=== PATIENT | female | born 1980 | race Caucasian/White ===

== ENCOUNTER 2017-07-18 19:10 | Inpatient (IN) | payer MEDICAID ==
--- NOTE | 2017-07-18 21:38 | EDM.PDOC ---
ED HPI GENERAL MEDICAL PROBLEM - General Chief Complaint: Head Injury Stated Complaint: FELL HIT HEAD Time Seen by Provider: 07/18/17 19:42 Source of Information: Reports: Patient, Family History Limitations: Reports: Altered Mental Status - History of Present Illness INITIAL COMMENTS - FREE TEXT/NARRATIVE: This lady comes in because of a head injury. At about 4 or 4:30 PM today she was standing on the edge of a sofa working on some overhead lights. She fell off fell backwards and landed on a concrete floor discovered with some for tile. She hit the back of her head. There was no loss of consciousness. The patient however initially she seemed fine afterwards but later she has become confused. The patient does not remember anything that happened today. She cannot remember her own name and she does not know the name of her area she does recognize that he is her however she doesn't know where she is. She complains of headache mostly to the posterior part of the head and complains of upper neck pain Head Pain Score (Numeric/FACES): 10 - Related Data Allergies Allergy/AdvReac Type Severity Reaction Status Date / Time No Known Allergies Allergy Verified 07/18/17 19:23 Home Meds: Home Meds Sertraline HCl [Zoloft] 50 mg PO DAILY 12/01/13 [History] Past Medical History HEENT History: Reports: Impaired Vision Genitourinary History: Reports: Other (See Below) Other Genitourinary History: cysts on kidneys? 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: Reports: Polycystic Ovaries, , Other (See Below) Other OB/BYN History: polyp removed from right fillopiantube Psychiatric History: Reports: Addiction, Anxiety, Depression, Psychosis, Suicide Attempt - Infectious Disease History Infectious Disease History: Reports: Chicken Pox - Past Surgical History HEENT Surgical History: Reports: Tonsillectomy Female Surgical History: Reports: Section Social & Family History - Tobacco Use Smoking Status *Q: Never Smoker Second Hand Smoke Exposure: No - Caffeine Use Caffeine Use: Reports: Coffee, Tea - Alcohol Use Days Per Week of Alcohol Use: 0 - Recreational Drug Use Recreational Drug Use: Yes Drug Use in Last 12 Months: No Recreational Drug Type: Reports: Benzodiazepines ED ROS GENERAL - Review of Systems Review Of Systems: Unable To Obtain (Due to head injury) ED EXAM, HEAD INJURY - Physical Exam Exam: See Below Exam Limited By: Altered Mental Status General Appearance: Alert, WD/WN, Moderate Distress Head: Scalp Tenderness (Posterior scalp is tender no obvious hematoma or ecchymosis.) Nexus Criteria: Posterior, Midline Cervical Tenderness (She does have some midline or left paraspinous muscle tenderness to the upper neck on the left actually in the suboccipital area on the left.), Altered Level of Consciousness , Painful Distraction Injuries. No: Evidence of Intoxication Eyes: Bilateral Eye: EOMI, PERRL (The nurse felt that there was any difference in her pupillary response however I do not see this) Ears: Normal External Exam, Normal TMs Nose: Normal Inspection Throat/Mouth: Normal Inspection, Normal Oropharynx Neck: Paraspinous Muscle Tender (Tenderness as noted above), Other Respiratory: Lungs Clear Cardiovascular: Regular Rate, Rhythm, No Murmur GI/Abdominal Exam: Non-Tender Extremities: Normal Inspection Neurologic: No Motor/Sensory Deficits, Alert, Other (This lady is very disoriented. She does not know either her own name or the name of her . She does recognize that he is her . She knows she is at some kind of a medical facility but doesn't know where she doesn't even know what town she lives in. She doesn't know the date or any kind of current events. She is very distressed over this.). No: Oriented x 3 DTR: 2+: Bicep (R), Bicep (L), Patella (R), Patella (L) Skin: Normal Color, Warm/Dry - Usama Coma Score Best Eye Response (Usama): (4) Open Spontaneously Best Verbal Response (Usama): (5) Oriented Best Motor Response (Campbell): (6) Obeys Commands Usama Total: 15 Course - Vital Signs Last Recorded V/S: Last Vital Signs Temp 36.6 C 07/18/17 19:26 Pulse 60 07/18/17 21:11 Resp 16 07/18/17 21:11 BP 125/72 07/18/17 21:11 Pulse Ox 98 07/18/17 21:11 - Orders/Labs/Meds Orders: Active Orders 24 hr Category Date Time Status Cervical Spine wo Cont [CT] Stat Exams 07/18/17 19:43 Taken Head wo Cont [CT] Stat Exams 07/18/17 19:42 Taken - Radiology Interpretation Free Text/Narrative:: CT shows no acute abnormality of the head are neck. - Re-Assessments/Exams Free Text/Narrative Re-Assessment/Exam: 07/18/17 21:38 Patient was rechecked after the CT and she continues to be disoriented. I spoke briefly with Dr. Norman in the emergency department at [facility] and he just recommended observation overnight. I spoke with Dr. Ingram and he agrees to accept the patient. She'll be admitted to the floor for neuro checks. Departure - Departure Time of Disposition: 21:41 Disposition: Admitted As Inpatient 68 Clinical Impression: Concussion injury of brain - Discharge Information Referrals: PCP,None [Primary Care Provider] - - My Orders Last 24 Hours: My Active Orders 07/18/17 19:42 Head wo Cont [CT] Stat 07/18/17 19:43 Cervical Spine wo Cont [CT] Stat - Assessment/Plan Last 24 Hours: My Active Orders 07/18/17 19:42 Head wo Cont [CT] Stat 07/18/17 19:43 Cervical Spine wo Cont [CT] Stat
[2017-07-18] MEDS ORDERED: Ibuprofen 600 MG Tab PO PRN (22:40)
[2017-07-18] MEDS: Acetaminophen 325 MG Tab PO PRN (23:04)
[2017-07-18] MEDS ORDERED: Ondansetron 4 MG/2 ML SDV IVPUSH PRN (23:40)
[2017-07-18] MEDS ORDERED: diphenhydrAMINE 50 MG/ML SDV IVPUSH PRN (23:42)
[2017-07-18] MEDS ORDERED: Promethazine 12.5 MG in Sodium Chloride 0.9% 50 ML IV PRN (23:42)
[2017-07-18] MEDS ORDERED: Morphine 2 MG/ML Syringe IVPUSH PRN (23:45)
[2017-07-18] MEDS ORDERED: Sodium Chloride 0.9% 1,000 ML IV SCH (23:45)
[2017-07-18] MEDS ORDERED: fentaNYL 100 MCG/2 ML SDV IVPUSH PRN (23:46)
[2017-07-19] MEDS ORDERED: Scopolamine 1.5 MG Transdermal Patch TRDERM PRN
[2017-07-19] MEDS: Acetaminophen 325 MG Tab PO PRN (03:09)
[2017-07-19 08:05] VITALS: BP 108/58
--- NOTE | 2017-07-19 22:12 | CONS ---
DATE OF SERVICE: 07/18/2017 REFERRING PHYSICIAN: CONSULTING PHYSICIAN: Willie Ingram MD REASON FOR CONSULTATION: Evaluation of neurological status. HISTORY OF PRESENT ILLNESS: This is a pleasant 37-year-old female, who was seen by the emergency room staff. On 07/18/2017 at approximately 4:00 p.m., the patient was standing, working on some lights and fell, landed on a concrete floor. The patient did not have a loss of consciousness at this time. She did initially do well, but then became confused later. She presented to the emergency room with complaints of headache and the aforementioned problems. She has pain on her head which is 1 to 2 out of 10. PAST MEDICAL HISTORY: Anxiety, depression, polycystic ovarian syndrome, history of C- section, tonsillectomy, radiofrequency ablation of her greater saphenous veins. SOCIAL HISTORY: She presents with her today. FAMILY HISTORY: Noncontributory. REVIEW OF SYSTEMS: GENERAL: As above. HEENT: Headache as above. CARDIOVASCULAR: No chest pain. RESPIRATORY: No shortness of breath. GI: No changes. : No changes. NEURO: As above. PSYCH: No changes. The remainder review of systems was reviewed and is negative. PHYSICAL EXAMINATION: VITAL SIGNS: Temperature 97.9, blood pressure 123/72, pulse 76, respirations 16, 100% on room air. HEENT: Pupils are equal. NECK: Has small amount of pain with palpation. NEUROLOGICAL: She is oriented. PSYCH: No gross depression. CARDIOVASCULAR: Regular rhythm and rate. RESPIRATORY: Lungs clear to consultation bilaterally. ABDOMEN: Bowel sounds positive. EXTREMITIES: Full range of motion. NEUROLOGICAL: Cranial nerves 2 through 12 are also grossly intact. LABORATORY DATA: Show a hemoglobin of 11.8, essentially normal basic metabolic panel and CBC. IMAGING DATA: The patient underwent a CT scan of her head, which showed no intracranial bleeds. She also underwent a cervical C-spine, which was reported to me as no abnormalities. ASSESSMENT: Traumatic fall. PLAN: The patient will be admitted for observation at this time. This was also discussed via the emergency room, Dr. Pang, with the neurosurgeon. We will keep her n.p.o. at this time, reassess her in the morning. She also have neuro checks on hourly basis. The patient understands this plan and wishes to proceed. Willie Ingram MD /[id number]
--- NOTE | 2017-07-22 09:10 | DISCH ---
FINAL NOTE/DISCHARGE NOTE SUBJECTIVE: The patient has greatly improved overnight per her and her family. OBJECTIVE: VITAL SIGNS: Stable. CARDIOVASCULAR: Regular rhythm and rate. RESPIRATORY: Lungs are clear to consultation bilaterally. NEUROLOGICAL: Oriented x3. PSYCHIATRIC: No abnormalities. ASSESSMENT: Status post head injury. PLAN: 1. The patient will be discharged today. 2. Follow up with myself in [place] next week. 3. General disposition: The patient was instructed not to have any strenuous activities. The and her were both explained that any evidence of neurological change, they are to present to the local emergency room immediately. We specifically also discussed a subarachnoid hemorrhage, subdural hematomas, epidural hematomas, the signs and symptoms of these delayed bleeding issues and any evidence of somnolence was also required to present to the emergency room. Furthermore, I discussed any concerns or any minor or even possibly insignificant neurological or behavioral changes, the patient's family is to call 911 or present to the emergency room. They understand this plan and wished to proceed with discharge. DISCHARGE MEDICATIONS: None. ADDITIONAL DIAGNOSIS OR CONSULTATIONS DURING THIS HOSPITALIZATION: None.
== END 2017-07-19 09:42 | disposition home or self-care (01) | DRG 90 ==
LOC: JP.ED 19:10 → JP.MS 22:11
PROVIDERS: ADMIT Surgery; ATTEND Surgery
DX: S06.0X0A Concussion without loss of consciousness, initial encounter (principal); Y93.89 Activity, other specified; W08.XXXA Fall from other furniture, initial encounter; R40.2412 Glasgow coma scale score 13-15, at arrival to emergency department; E28.2 Polycystic ovarian syndrome; F32.9 Major depressive disorder, single episode, unspecified; F41.9 Anxiety disorder, unspecified; H54.7 Unspecified visual loss; R41.0 Disorientation, unspecified; R51 Headache; M54.2 Cervicalgia
CPT/HCPCS: 36415; 70450; 72125; 80048; 85027; 99285-25; A9270-GY; J7040

== ENCOUNTER 2018-07-11 10:16 | Emergency (ER) | payer MEDICAID ==
[2018-07-11 10:35] VITALS: BP 125/96
--- NOTE | 2018-07-11 11:26 | EDM.PDOC ---
ED HPI GENERAL MEDICAL PROBLEM - General Chief Complaint: FINGER WAVER Problem Stated Complaint: EXCESSIVE MENSTRUAL BLEEDING Time Seen by Provider: 07/11/18 11:02 Source of Information: Reports: Patient, RN Notes Reviewed History Limitations: Reports: No Limitations - History of Present Illness INITIAL COMMENTS - FREE TEXT/NARRATIVE: Elizabet presents today with complaints of sudden onset menstrual bleeding today. She reports soaking a tampon in 15 minutes with significant cramping and clots the size of a golf ball. She reports heavy bleeding with her menstrual cycle on 06/17/18 and 06/18/18 with soaking a regular sized tampon every 30 minutes for one of the days with heavy cramping. She denies trauma, injury to her genitals/pelvis. She denies pain during intercourse or post-coital bleeding. She does not use any form of contraception. She is without concerns for STI's. Lower Pelvic Pain Score (Numeric/FACES): 7 - Related Data Allergies Allergy/AdvReac Type Severity Reaction Status Date / Time No Known Allergies Allergy Verified 07/18/17 19:23 Home Meds: Home Meds Sertraline HCl [Zoloft] 50 mg PO DAILY 12/01/13 [History] Past Medical History HEENT History: Reports: Impaired Vision Genitourinary History: Reports: Other (See Below) Other Genitourinary History: cysts on kidneys? FINGER WAVER History: Reports: Polycystic Ovaries, , Other (See Below) Other FINGER WAVER History: polyp removed from right fillopiantube Psychiatric History: Reports: Addiction, Anxiety, Depression, Psychosis, Suicide Attempt - Infectious Disease History Infectious Disease History: Reports: Chicken Pox - Past Surgical History HEENT Surgical History: Reports: Tonsillectomy Female Surgical History: Reports: Section Social & Family History - Tobacco Use Smoking Status *Q: Never Smoker - Caffeine Use Caffeine Use: Reports: Coffee - Recreational Drug Use Recreational Drug Use: No ED ROS GENERAL - Review of Systems Review Of Systems: See Below Constitutional: Denies: Fever, Chills, Malaise, Weakness HEENT: Reports: No Symptoms Respiratory: Reports: No Symptoms Cardiovascular: Reports: No Symptoms Endocrine: Reports: No Symptoms GI/Abdominal: Reports: Abdominal Pain, Other (menstrual cramping with radiation to her low back. ). Denies: Constipation, Diarrhea, Nausea, Vomiting : Reports: Irregular Menses, Pain, Other (painful, irregular and heavy menstrual cycle. ). Denies: Flank Pain Musculoskeletal: Reports: No Symptoms Skin: Reports: No Symptoms Neurological: Reports: No Symptoms Psychiatric: Reports: No Symptoms Hematologic/Lymphatic: Reports: No Symptoms Immunologic: Reports: No Symptoms ED EXAM, GI/ABD - Physical Exam Exam: See Below Text/Narrative:: Elizabet is an alert and oriented 38 year old female presenting with complaints of heavy, painfu vaginal bleeding with clots the size of a golf ball. She reports soaking a tampon in 15 minutes this morning. She denies bleeding at this time. She has not taken any OTC medications for cramping. Patient states she can only use regular sized tampons, larger onces hurt when used. Exam Limited By: No Limitations General Appearance: Alert, WD/WN, Mild Distress Eyes: Bilateral: Normal Appearance, EOMI Ears: Normal External Exam, Normal Canal, Hearing Grossly Normal, Normal TMs Throat/Mouth: Normal Inspection, Normal Lips, Normal Teeth, Normal Gums, Normal Oropharynx, Normal Voice, No Airway Compromise Head: Atraumatic, Normocephalic Neck: Normal Inspection, Supple, Non-Tender, Full Range of Motion. No: Lymphadenopathy (R), Lymphadenopathy (L) Respiratory/Chest: No Respiratory Distress, Lungs Clear, Normal Breath Sounds, No Accessory Muscle Use, Chest Non-Tender Cardiovascular: Normal Peripheral Pulses, Regular Rate, Rhythm, No Edema, No Murmur, No Rub GI/Abdominal Exam: Normal Bowel Sounds, Soft, No Organomegaly, No Distention, No Mass, Other (Tenderness to RLQ, LLQ with palpation, no rebound or guarding) Back Exam: Normal Inspection, Full Range of Motion. No: CVA Tenderness (R), CVA Tenderness (L) Extremities: Normal Inspection, Normal Range of Motion, Non-Tender, No Pedal Edema, Normal Capillary Refill Neurological: Alert, Oriented, CN II-XII Intact, Normal Cognition, Normal Gait, Normal Reflexes, No Motor/Sensory Deficits Psychiatric: Normal Affect, Normal Mood Skin Exam: Warm, Dry, Intact, Normal Color, No Rash Lymphatic: No Adenopathy Course - Vital Signs Last Recorded V/S: Last Vital Signs Temp 37.0 C 07/11/18 10:34 Pulse 51 L 07/11/18 10:34 Resp 16 07/11/18 10:34 BP 125/96 H 07/11/18 10:34 Pulse Ox 100 07/11/18 10:34 - Orders/Labs/Meds Labs: Laboratory Tests 07/11/18 07/11/18 07/11/18 Range/Units 11:37 11:37 11:37 WBC 6.9 (4.5-11.0) K/uL RBC 4.58 (3.30-5.50) M/uL Hgb 12.8 (12.0-15.0) g/dL Hct 39.9 (36.0-48.0) % MCV 87 (80-98) fL MCH 28 (27-31) pg MCHC 32 (32-36) % Plt Count 298 (150-400) K/uL Neut % (Auto) 62 (36-66) % Lymph % (Auto) 30 (24-44) % Bee % (Auto) 6 (2-6) % Eos % (Auto) 2 (2-4) % Baso % (Auto) 0 (0-1) % PT 10.8 (9.5-12.0) sec INR 0.98 (0.80-1.20) APTT 29.7 (27.0-36.0) sec Sodium 139 L (140-148) mmol/L Potassium 4.2 (3.6-5.2) mmol/L Chloride 103 (100-108) mmol/L Carbon Dioxide 26 (21-32) mmol/L Anion Gap 14.2 H (5.0-14.0) mmol/L BUN 10 (7-18) mg/dL Creatinine 0.7 (0.6-1.0) mg/dL Est Cr Clr Drug Dosing 95.94 mL/min Estimated GFR (MDRD) > 60 (>60) Glucose 77 (74-106) mg/dL Calcium 9.0 (8.5-10.1) mg/dL Total Bilirubin 0.3 (0.2-1.0) mg/dL AST 20 (15-37) U/L ALT 23 (12-78) U/L Alkaline Phosphatase 104 (46-116) U/L Total Protein 7.9 (6.4-8.2) g/dL Albumin 3.8 (3.4-5.0) g/dL Globulin 4.1 H (2.3-3.5) g/dL Albumin/Globulin Ratio 0.9 L (1.2-2.2) TSH, Ultra Sensitive 2.330 (0.358-3.740) uIU/mL Urine Color Urine Appearance Urine pH (4.5-8.0) Ur Specific [place] (1.008-1.030) Urine Protein (NEGATIVE) mg/dL Urine Glucose (UA) (NEGATIVE) mg/dL Urine Ketones (NEGATIVE) mg/dL Urine Occult Blood (NEGATIVE) Urine Nitrite (NEGATIVE) Urine Bilirubin (NEGATIVE) Urine Urobilinogen (NORMAL) mg/dL Ur Leukocyte Esterase (NEGATIVE) Urine RBC (0-5) Urine WBC (0-5) Ur Epithelial Cells Amorphous Sediment Urine Bacteria Urine Mucus Urine HCG, Qual 07/11/18 07/11/18 Range/Units 14:00 14:00 WBC (4.5-11.0) K/uL RBC (3.30-5.50) M/uL Hgb (12.0-15.0) g/dL Hct (36.0-48.0) % MCV (80-98) fL MCH (27-31) pg MCHC (32-36) % Plt Count (150-400) K/uL Neut % (Auto) (36-66) % Lymph % (Auto) (24-44) % Bee % (Auto) (2-6) % Eos % (Auto) (2-4) % Baso % (Auto) (0-1) % PT (9.5-12.0) sec INR (0.80-1.20) APTT (27.0-36.0) sec Sodium (140-148) mmol/L Potassium (3.6-5.2) mmol/L Chloride (100-108) mmol/L Carbon Dioxide (21-32) mmol/L Anion Gap (5.0-14.0) mmol/L BUN (7-18) mg/dL Creatinine (0.6-1.0) mg/dL Est Cr Clr Drug Dosing mL/min Estimated GFR (MDRD) (>60) Glucose (74-106) mg/dL Calcium (8.5-10.1) mg/dL Total Bilirubin (0.2-1.0) mg/dL AST (15-37) U/L ALT (12-78) U/L Alkaline Phosphatase (46-116) U/L Total Protein (6.4-8.2) g/dL Albumin (3.4-5.0) g/dL Globulin (2.3-3.5) g/dL Albumin/Globulin Ratio (1.2-2.2) TSH, Ultra Sensitive (0.358-3.740) uIU/mL Urine Color Yellow Urine Appearance Clear Urine pH 5.0 (4.5-8.0) Ur Specific [place] 1.015 (1.008-1.030) Urine Protein Negative (NEGATIVE) mg/dL Urine Glucose (UA) Normal (NEGATIVE) mg/dL Urine Ketones Negative (NEGATIVE) mg/dL Urine Occult Blood Trace (NEGATIVE) Urine Nitrite Negative (NEGATIVE) Urine Bilirubin Negative (NEGATIVE) Urine Urobilinogen Normal (NORMAL) mg/dL Ur Leukocyte Esterase Negative (NEGATIVE) Urine RBC 0-5 (0-5) Urine WBC Not seen (0-5) Ur Epithelial Cells Many Amorphous Sediment Rare Urine Bacteria Not seen Urine Mucus Not seen Urine HCG, Qual Negative Patient lab work reviewed with her, all her questions answered. We will complete a pelvic US. Meds: Medications Discontinued Medications Generic Name Dose Route Start Last Admin Trade Name Freq PRN Reason Stop Dose Admin Acetaminophen 1,000 mg 07/11/18 11:34 07/11/18 12:04 Tylenol Extra Strength PO 07/11/18 11:35 1,000 mg ONETIME ONE Administration Ketorolac Tromethamine 60 mg 07/11/18 14:02 07/11/18 14:06 Toradol IM 07/11/18 14:03 60 mg ONETIME ONE Administration - Radiology Interpretation Free Text/Narrative:: US Pelvis non-OB Impression: Heterogeneous thickened endometrium which may represent some clot in the endometrial cavity endometrium is slightly hyperemic. Adjacent to the left ovary is soft tissue focus measuring 3.6x2.2x2.1cm containing a site hyperechoic and a small anechoic focus. Urine Hgc negative - Re-Assessments/Exams Free Text/Narrative Re-Assessment/Exam: 07/11/18 14:50 US and lab work discussed with patient. All her questions were answered. She is in agreement with plan. She can use ibuprofen/acetaminophen as needed for pain. Follow up with primary provider for CONTAINER REPAIRER referral. Departure - Departure Time of Disposition: 15:05 Disposition: Home, Self-Care 01 Condition: Good Clinical Impression: Abnormal vaginal bleeding - Discharge Information *PRESCRIPTION DRUG MONITORING PROGRAM REVIEWED*: No *COPY OF PRESCRIPTION DRUG MONITORING REPORT IN PATIENT JANNETH: No Referrals: PCP,None [Primary Care Provider] - Forms: ED Department Discharge Additional Instructions: You have been evaluated and treated for abnormal uterine bleeding. US results discussed. Urine test negative. Your lab work did not show any acute findings and was within normal ranges with Hgb of 12.8, TSH 2.33, kidney, liver functions all normal. Use of ibuprofen 800mg by mouth three times a day with your uterine bleeding can help with cramping and pain. You can also use acetaminophen 1000mg by mouth three times a day for pain. Track your uterine bleeding and size of blood clots and report to your primary. Keep yourself hydrated. Follow up with your primary provider for a CONTAINER REPAIRER referral in 7 to 10 days. Return for worsening, issues or concerns. - Assessment/Plan Assessment:: Abnormal vaginal bleeding Plan: Patient evaluated and treated for abnormal uterine bleeding. US results discussed. Urine test negative. Lab work did not show any acute findings and was within normal ranges with Hgb of 12.8, TSH 2.33, kidney, liver functions all normal. Use of ibuprofen 800mg by mouth three times a day with uterine bleeding, cramping and pain. Can also use acetaminophen 1000mg by mouth three times a day for pain. Track uterine bleeding and size of blood clots and report to primary. Keep hydrated. Follow up with primary provider for a CONTAINER REPAIRER referral in 7 to 10 days. Return for worsening, issues or concerns.
[2018-07-11] MEDS ORDERED: Acetaminophen 500 MG Tab PO ONE (11:34)
[2018-07-11] MEDS ORDERED: Ketorolac 60 MG/2 ML SDV IM ONE (14:02)
--- NOTE | 2018-07-11 14:45 | US ---
Pelvis Non OB Comp CLINICAL HISTORY: Vaginal bleeding FINDINGS: Uterus measures 7.4 x 3.5 x 3.9 cm. Endometrium is thickened at just over 8 mm. It is heter ogeneous. This may represent some clot in the endometrial cavity. The endometrium is mildly hypervasc ular. The left ovary measures 2.8 x 2.0 x 2.7 cm. There is a cyst measuring 2.1 x 1.3 x 1.5 cm adjacent to the left ovary is soft tissue density measuring 3.6 x 2.2 x 2.1 cm. There is a slightly hyperechoic f ocus within this measuring 1.3 x 1.1 x 1.0 cm. There is also 1.3 x 1.1 x 1.0 cm anechoic focus. This could feasibly represent the a displaced right ovary. Pelvic complex mass is not excluded. There is a small amount of free fluid in the cul-de-sac IMPRESSION: Heterogeneous thickened endometrium which may represent to some clot in the endometrial c avity. The endometrium is slightly hyperemic. This is nonspecific Adjacent to the left ovary is soft tissue focus measuring 3.6 x 2.2 x 2.1 cm containing a site hypere choic and a small anechoic focus. This could be a displaced to the right ovary. A left the pelvic mas s is not excluded. Findings should be correlated with hCG levels and that an ectopic is not excluded
--- NOTE | 2018-07-11 14:56 | US ---
See ultrasound report
== END 2018-07-11 15:23 | disposition home or self-care (01) ==
LOC: JP.ED 10:16
DX: N93.9 Abnormal uterine and vaginal bleeding, unspecified (principal); F41.9 Anxiety disorder, unspecified; F32.9 Major depressive disorder, single episode, unspecified; Z79.899 Other long term (current) drug therapy
CPT/HCPCS: 36415; 76830; 76856; 80053; 81001; 81025; 84443; 85025; 85610; 85730; 96372; 99284; A9270; J1885

== ENCOUNTER 2018-12-22 11:34 | Emergency (ER) | payer MEDICAID ==
[2018-12-22 11:58] VITALS: BP 108/45
[2018-12-22] MEDS ORDERED: Ketorolac 60 MG/2 ML SDV IM ONE (12:54)
--- NOTE | 2018-12-22 12:54 | EDM.PDOC ---
<Catherine Gilliam - Last Filed: 12/23/18 00:46> ED HPI GENERAL MEDICAL PROBLEM - General Chief Complaint: Genitourinary Problem Stated Complaint: CRAMPS, DIARRHEA, VOMITING, RT FLANK PAIN Time Seen by Provider: 12/22/18 12:20 Source of Information: Reports: Patient History Limitations: Reports: No Limitations - History of Present Illness INITIAL COMMENTS - FREE TEXT/NARRATIVE: Pt presents with lower right abdominal pain. She states that this started around 6 pm last evening with severe abdominal cramping that ended up with a very large hard, dark bowel movement that progressed to diarrhea. Pt states she had a hysterectomy in August that also showed significant endometriosis. They were unable to remove her ovaries & one flaopian tube remains due to the endometriosis. She continues with stomach ache now more to the right lower quadrant that is better with pressure applied. Pt states she is otherwise healthy, drinks adequate water with 3-4 large bottles daily, only medication is zoloft and prn laxative when difficulty passing stool. Pt does not want narcotics and states was able to make it through her hysterectomy surgery with only tylenol, ibuprofen and toradol for pain. Onset: Sudden Onset Date: 12/21/18 Onset Time: 18:00 Duration: Hour(s):, Constant, Getting Worse Location: Reports: Abdomen (predominently lower right quadrant) Quality: Reports: Sharp Severity: Severe Improves with: Reports: Immobilization Worsens with: Reports: Movement Context: Reports: Other (sudden onset) Associated Symptoms: Reports: Loss of Appetite, Nausea/Vomiting, Other ( constipation progressing to diarrhea) Pelvic Pain Score (Numeric/FACES): 7 - Related Data Allergies Allergy/AdvReac Type Severity Reaction Status Date / Time No Known Allergies Allergy Verified 12/22/18 12:12 Home Meds: Home Meds Sertraline HCl [Zoloft] 50 mg PO DAILY 12/01/13 [History] Past Medical History HEENT History: Reports: Impaired Vision Genitourinary History: Reports: Other (See Below) Other Genitourinary History: cysts on kidneys? 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 History: Reports: Polycystic Ovaries, , Other (See Below) Other 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 History: polyp removed from right fillopiantube Psychiatric History: Reports: Addiction, Anxiety, Depression, Psychosis, Suicide Attempt - Infectious Disease History Infectious Disease History: Reports: Chicken Pox - Past Surgical History HEENT Surgical History: Reports: Tonsillectomy Female Surgical History: Reports: Section, Hysterectomy Social & Family History - Tobacco Use Smoking Status *Q: Never Smoker - Caffeine Use Caffeine Use: Reports: Coffee - Recreational Drug Use Recreational Drug Use: No ED ROS GENERAL - Review of Systems Review Of Systems: See Below Constitutional: Reports: Decreased Appetite HEENT: Reports: No Symptoms Respiratory: Reports: No Symptoms Cardiovascular: Reports: No Symptoms GI/Abdominal: Reports: Abdominal Pain, Constipation, Diarrhea, Decreased Appetite, Mucous in Stool, Nausea, Vomiting Musculoskeletal: Reports: No Symptoms Skin: Reports: No Symptoms Neurological: Reports: No Symptoms Psychiatric: Reports: Depression (without exacerbation controlled with current dose of zoloft) Hematologic/Lymphatic: Reports: No Symptoms ED EXAM, GENERAL - Physical Exam Exam: See Below Free Text/Narrative:: 38 y/o female appears her stated age with moderate distress. Pt is not diaphoretic and is without fever Exam Limited By: No Limitations General Appearance: Alert, WD/WN, Moderate Distress. No: No Apparent Distress Respiratory/Chest: No Respiratory Distress, Lungs Clear, Normal Breath Sounds, No Accessory Muscle Use, Chest Non-Tender Cardiovascular: Normal Peripheral Pulses, Regular Rate, Rhythm, No Edema, No Gallop, No Murmur, No Rub GI/Abdominal: Soft, No Organomegaly, No Distention, No Abnormal Bruit, No Mass, Pelvis Stable, Guarding, Rebound, Tender, Abnormal Bowel Sounds (hypo) Neurological: Alert, Oriented, CN II-XII Intact, Normal Cognition, Normal Reflexes, No Motor/Sensory Deficits Skin Exam: Warm, Dry, Intact, Normal Color, No Rash Lymphatic: No Adenopathy Course - Vital Signs Last Recorded V/S: Last Vital Signs Temp 97.3 F 12/22/18 12:12 Pulse 61 12/22/18 12:12 Resp 22 H 12/22/18 12:12 BP 108/45 L 12/22/18 12:12 Pulse Ox 100 12/22/18 12:12 - Orders/Labs/Meds Orders: Active Orders 24 hr Category Date Time Status Transvaginal Non OB [US] Stat Exams 12/22/18 16:54 Taken Labs: Laboratory Tests 12/22/18 12/22/18 Range/Units 12:53 12:53 WBC 16.3 H (4.5-11.0) K/uL RBC 4.45 (3.30-5.50) M/uL Hgb 12.3 (12.0-15.0) g/dL Hct 38.0 (36.0-48.0) % MCV 85 (80-98) fL MCH 28 (27-31) pg MCHC 32 (32-36) % Plt Count 275 (150-400) K/uL Sodium 136 L (140-148) mmol/L Potassium 4.0 (3.6-5.2) mmol/L Chloride 103 (100-108) mmol/L Carbon Dioxide 25 (21-32) mmol/L Anion Gap 12.0 (5.0-14.0) mmol/L BUN 10 (7-18) mg/dL Creatinine 0.7 (0.6-1.0) mg/dL Est Cr Clr Drug Dosing 95.94 mL/min Estimated GFR (MDRD) > 60 (>60) Glucose 93 (74-106) mg/dL Calcium 9.2 (8.5-10.1) mg/dL Meds: Medications Discontinued Medications Generic Name Dose Route Start Last Admin Trade Name Freq PRN Reason Stop Dose Admin Ketorolac Tromethamine 60 mg 12/22/18 12:54 12/22/18 13:08 Toradol IM 12/22/18 12:55 60 mg ONETIME ONE Administration Ketorolac Tromethamine 10 mg 12/22/18 17:47 12/22/18 17:53 Toradol PO 12/22/18 17:48 10 mg ONETIME ONE Administration - Re-Assessments/Exams Free Text/Narrative Re-Assessment/Exam: 12/22/18 16:[address] scan were discussed with the patient. Radiologist suggested additional Ultrasound imaging of the pelvis. This was consented to by the patient and was completed. Additional findings from the ultrasound discussed with the patient and options were discussed. Contacted her 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 group in [place] who were very familiar with her case and suggested consult with [facility] due to her risk and inability to complete a surgery in [place]. Patient offered referral to [facility] or optional steroid therapy for temporary relief of symptoms until she can arrange for surgical procedure. Departure - Departure Time of Disposition: 18:11 Disposition: Home, Self-Care 01 Condition: Fair Clinical Impression: Endometriosis - Discharge Information Instructions: Endometriosis Referrals: PCP,None [Primary Care Provider] - Forms: ED Department Discharge Additional Instructions: Activity as tolerated Care Plan Goals: Followup with Dr. Castañeda on Wed at 1045 at the [facility]. Take the torodol every 6 hours for pain/inflammation If symptoms worsen or are not able to control the pain return to the ER in [place] or go to the ER at the [facility] location. Dr. Castañeda is expecting you and will see you at the above time or in the ER if necessary. - My Orders Last 24 Hours: My Active Orders 12/22/18 16:54 Transvaginal Non OB [US] Stat - Assessment/Plan Last 24 Hours: My Active Orders 12/22/18 16:54 Transvaginal Non OB [US] Stat <Armin Saunders - Last Filed: 12/23/18 07:00> Attestation - Student - Attestation Statement Attestation Statement: I personally performed or re-performed the physical examination and medical decision making. I have verified all student documentation or findings, including history, physical exam and/or medical decision making. Armin Saunders MD
--- NOTE | 2018-12-22 14:29 | CT ---
Abdomen Pelvis wo Cont CLINICAL HISTORY: Abdominal pain, previous hysterectomy COMPARISON: None TECHNIQUE: Multiple contiguous axial sections were obtained from the level of the lung bases down through the pelvis without and with the IV infusion of iodinated contrast. Oral contrast was not administered. From these images 3D reconstructions were obtained and viewed on a dedicated and independent workstation. Auto dosage reduction and iterative reconstruction techniques employed. FINDINGS: There is a noncalcified 2 x 3 mm subpleural nodule in the right lower lobe posterior laterally on image #9. The liver is free of obvious mass or biliary dilatation. Evaluation is limited without IV contrast. The gallbladder has a normal appearance. The spleen has normal size and shape. The pancreas shows no mass or inflammatory change. The adrenal glands appear normal bilaterally.. The kidneys are free of stones or hydronephrosis. The ureters have a normal course and contour. The bladder has a normal contour. There is some thickening of the proximal third of the sigmoid colon. There is an ovoid soft tissue mass in the left the mid pelvis measuring 5.8 x 5.1 x 6.1 cm. There is some stranding in the pelvic fat posterior to this. There is some wispy increased density within the lower abdominal and pelvic mesenteric fat. There are scattered small mildly prominent mesenteric lymph nodes. The patient is status post hysterectomy. There are a few scattered small lymph nodes in the periaortic the upper. Iliac regions. These are all subcentimeter in size. Inguinal regions are clear. IMPRESSION: 525.1 x 6.1 cm slightly heterogeneous mass in the mid left pelvis. This is contiguous to the proximal third of the sigmoid which appears slightly thickened. There is some inflammatory change in the fat posteriorly. Patient has a history of prior surgery in August 2018. Patient also has a history of the endometriosis. This mass could be a residual hematoma or possibly infected hematoma in that there is some inflammatory change. Abscess is less likely due to the chronology of the procedure. Considering the patient's history of endometriosis this could also represent a large endometrioma. Ultrasound is recommended for additional characterization. There is some generalized increase in mesenteric fat density with scattered mesenteric lymph nodes. This can be seen with mesenteric panniculitis. 2 x 3 mm noncalcified subpleural nodule in the right lower lobe. Follow-up using Fleischner Society criteria recommended FLEISCHNER CRITERIA (2017) Incidental Pulmonary Nodule Follow-up SOLID NODULES: Nodule size <6 mm -single and multiple nodules in low risk patient: no routine follow-up -single and multiple nodules in high risk patient: optional CT at 12 months Nodule size 6-8 mm -single nodule in low risk patient: CT at 6-12 months, then consider CT at 18-24 months -multiple nodules in low risk patient: CT at 3-6 months, then consider CT at 18-24 months -single nodule in high risk patient: CT at 6-12 months, then CT at 18-24 months -multiple nodules in high risk patient: CT at 3-6 months, then CT at 18-24 months Nodule size >8 mm -single nodule in both low and high risk patient: consider CT, PET/CT, or tissue sampling at 3 months -multiple nodules in low risk patient: CT at 3-6 months, then consider CT at 18-24 months -multiple nodules in high risk patient: CT at 3-6 months, then CT at 18-24 months SUB-SOLID NODULES: Nodule size <6 mm -single ground-glass, part solid: no routine follow-up -multiple: CT at 3-6 months. If stable, consider CT at 2 and 4 years Nodule size ?6 mm -single ground-glass: CT at 6-12 months to confirm persistence, then CT every 2 years until 5 years -single part solid: CT at 3-6 months to confirm persistence. If unchanged and solid component remains <6 mm, annual CT should be performed for 5 years -multiple: CT at 3-6 months. Subsequent management based on the most suspicious nodule(s) Implications for Patient Care 1. These guidelines apply to incidental nodules, which can be managed according to the specific recommendations. 2. These guidelines do not apply to patients younger than 35 years, immunocompromised patients, or patients with cancer. 3. For lung cancer screening, adherence to the existing [employer] Lung CT Screening Reporting and Data System (Lung-RADS) guidelines is recommended.
--- NOTE | 2018-12-22 16:55 | US ---
Pelvis Non OB Comp CLINICAL HISTORY: Pelvic pain, mass, previous surgery FINDINGS: Real-time transabdominal and transvaginal images are obtained through the pelvis and correlated with a recent CT. The soft tissue masslike density in the pelvis on CT correlates to a complex focus of similar size. There are loculated fluid components which are fairly well demarcated. There is some surrounding free fluid. There is flow within the solid appearing components. IMPRESSION: Complex masslike focus in the pelvis appears to contain predominantly ovarian tissue with multiple complex cysts. This could be the left ovary but, in that the right ovary is not visualized this may actually be both ovaries with scarring related to the patient's endometriosis. Hematoma or abscess are felt unlikely There is some free fluid in the adnexal region and cul-de-sac. This is nonspecific
[2018-12-22] MEDS ORDERED: Ketorolac 10 MG Tab PO ONE (17:47)
== END 2018-12-22 18:10 | disposition home or self-care (01) ==
LOC: JP.ED 11:34
DX: N80.9 Endometriosis, unspecified (principal); F41.9 Anxiety disorder, unspecified; F32.9 Major depressive disorder, single episode, unspecified; Z79.899 Other long term (current) drug therapy
CPT/HCPCS: 36415; 74176; 76830; 76856; 80048; 85027; 96372; 99284; A9270; J1885

== ENCOUNTER 2022-10-15 20:57 | Emergency (ER) | payer MEDICAID ==
[2022-10-15 21:49] VITALS: BP 106/48; PULSE 98
[2022-10-15] MEDS ORDERED: Ketorolac 30 MG/ML SDV IM ONE (21:50)
== END 2022-10-15 23:01 | disposition home or self-care (01) ==
LOC: JP.ED 20:57
DX: M94.0 Chondrocostal junction syndrome [Tietze] (principal)
CPT/HCPCS: 36415; 71046; 80048; 84484; 85025; 93005; 96372; 99285; J1885; 99283

== ENCOUNTER 2023-06-29 06:17 | Emergency (ER) | payer MEDICAID ==
[2023-06-29 06:58] LABS: APPEARANCE,URINE CLEAR (CLEAR); BILIRUBIN,URINE NEGATIVE (NEGATIVE); COLOR,URINE YELLOW (YELLOW); GLUCOSE,URINE NEGATIVE (NEGATIVE); KETONES,URINE NEGATIVE (NEGATIVE); LEUKOCYTE ESTERASE,URINE NEGATIVE (NEGATIVE); NITRITE,URINE NEGATIVE (NEGATIVE); OCCULT BLOOD,URINE NEGATIVE (NEGATIVE); PH,URINE 5.5 (5.0-8.0); PROTEIN,URINE NEGATIVE (NEGATIVE); UROBILINOGEN,URINE 0.2 EU/dL (0.2-1.0)
[2023-06-29 07:00] LABS: AMORPHOUS SEDIMENT,URINE NOT SEEN; BACTERIA,URINE MODERATE; EPITHELIAL CELLS,URINE MODERATE; MUCUS,URINE MANY; RBC,URINE 0-5 (0-5)
[2023-06-29] MEDS ORDERED: Ketorolac 15 MG/ML SDV IM ONE (07:04)
[2023-06-29] MEDS ORDERED: Sodium Chloride 0.9% 10 ML Syringe FLUSH PRN (08:46)
[2023-06-29] MEDS ORDERED: Ketorolac 30 MG/ML SDV IVPUSH ONE (08:47)
[2023-06-29] MEDS ORDERED: Acetaminophen 1,000 MG in Premix Bag 1 BAG IV ONE (08:48)
[2023-06-29] MEDS ORDERED: Ondansetron 4 MG/2 ML SDV IVPUSH ONE (08:49)
[2023-06-29 08:59] LABS: BASOPHILS ABSOLUTE AUTO 0.03 K/uL (0.00-0.10); BASOPHILS PERCENT AUTO 0.6 % (0.1-1.3); EOSINOPHILS ABSOLUTE AUTO 0.11 K/uL (0.00-0.40); EOSINOPHILS PERCENT AUTO 2.3 % (0.0-5.4); HEMATOCRIT 42.1 % (34.3-46.0); HEMOGLOBIN 13.7 g/dL (11.2-15.5); LYMPHOCYTES ABSOLUTE AUTO 1.65 K/uL (0.8-3.3); MEAN CORPUSCULAR HGB CONC 32.5 g/dL (31.6-35.5); MEAN CORPUSCULAR VOLUME 92.1 fL (81.4-99.0); MONOCYTES ABSOLUTE AUTO 0.37 K/uL (0.20-0.90); MONOCYTES PERCENT AUTO 7.6 % (3.3-12.6); NEUTROPHILS PERCENT AUTO 55.5 % (40.0-78.1); PLATELET COUNT,PLT 244 K/uL (130-375); RED BLOOD CELL COUNT 4.57 M/uL (3.77-5.24); WHITE BLOOD CELL COUNT,WBC 4.9 K/uL (3.2-11.0)
[2023-06-29 09:21] LABS: C-REACTIVE PROTEIN 0.44 mg/dL (0.0-0.3); CREATININE 0.8 mg/dL (0.6-1.0); EST CRCL DRUG DOSING (CG) 79.91 mL/min; POTASSIUM,K 4.5 mmol/L (3.6-5.2)
[2023-06-29 09:22] LABS: ANION GAP 10.5 mmol/L (5.0-14.0)
[2023-06-29 10:14] VITALS: BP 107/61; PULSE 59
== END 2023-06-29 10:30 | disposition home or self-care (01) ==
LOC: JP.ED 06:17
DX: R10.9 Unspecified abdominal pain (principal); N80.9 Endometriosis, unspecified; Z79.899 Other long term (current) drug therapy
CPT/HCPCS: 36415; 74176; 80048; 81001; 85025; 86140; 86304; 96372; 96374; 96375; 99284; J0131; J1885; J2405; J3490